=== PATIENT | female | born 1965 | race Caucasian/White ===

== ENCOUNTER 2020-10-03 13:01 | Outpatient (CLI) | payer MEDICARE, MEDICAID, SELFPAY | END 2020-10-03 13:02 | disposition home or self-care (01) | LOC: ANHBWCAUD 13:02 | PROVIDERS: PCP Internal Medicine; Visit Provider Internal Medicine | DX: H90.3 Sensorineural hearing loss, bilateral (principal) | CPT/HCPCS: 92557; 92567 ==

== ENCOUNTER 2020-10-21 13:53 | Outpatient (RCR) | payer MEDICAID, SELFPAY | END 2021-01-19 23:59 | disposition home or self-care (01) | LOC: ANHBWCAUD 13:53 | PROVIDERS: PCP Internal Medicine; Visit Provider Internal Medicine | DX: Z46.1 Encounter for fitting and adjustment of hearing aid (principal) | CPT/HCPCS: V5160; V5261 ==

== ENCOUNTER 2023-04-19 13:58 | Emergency (ER) | payer MEDICARE, MEDICAID, SELFPAY ==
[2023-04-19 14:27] VITALS: BP 117/76; PULSE 84; RESP 16; TEMP 37.1; O2SAT 99
--- NOTE | 2023-04-19 15:38 | ED.GENADULT ---
HPI - General Adult General Chief complaint: Upper Respiratory Infection Stated complaint: exposed RSV/feeling bad Source: patient Mode of arrival: ambulatory Limitations: no limitations History of Present Illness HPI narrative: PATIENT PRESENTS FOR EVALUATION OF RESPIRATORY SYMPTOMS FOR LAST 2 DAYS. SYMPTOMS INCLUDE NONPRODUCTIVE COUGH, OCCASIONAL WHEEZING, BODY ACHES, DIAPHORESIS, FEVER, CHILLS, NAUSEA, VOMITING, DIARRHEA, SHORTNESS OF BREATH. HER GRANDSON IS HERE BEING EVALUATED FOR SIMILAR SYMPTOMS. SHE HAS TAKEN DAYQUIL AND NYQUIL TO ASSIST WITH HER SYMPTOMS. SHE SMOKES APPROXIMATELY QUARTER PACK PER DAY AND ALSO SMOKES MARIJUANA DAILY. HER FEMALE GRANDCHILD HAS RSV. Related Data Home Medications Medication Instructions Recorded Confirmed calcium carbonate 600 mg-vitamin tablet PO 04/19/23 D3 10 mcg (400 unit) tablet omeprazole 20 mg capsule,delayed mg 04/19/23 release trazodone 50 mg tablet mg 04/19/23 Allergies Allergy/AdvReac Type Severity Reaction Status Date / Time No Known Allergies Allergy Unverified 07/24/15 11:11 Review of Systems Review of Systems: CONSTITUTIONAL: Reports fever, chills, diaphoresis. EYES: Denies visual changes, redness, or discharge. ENT: Reports sinus congestion postnasal drainage. CARDIOVASCULAR: Denies chest pain, palpitations, or edema. RESPIRATORY: Reports cough and shortness of breath. GASTROINTESTINAL: Reports nausea, vomiting, diarrhea GENITOURINARY: Denies dysuria or hematuria. SKIN: Denies rash or itching. MUSCULOSKELETAL: Reports generalized body aches. NEUROLOGIC: Denies headache, numbness, dizziness, or weakness. PSYCHIATRIC: Denies anxiety or depression. [facility] Past Medical History Medical History Arthritis COPD (chronic obstructive pulmonary disease) Surgical History Surgical History No pertinent past surgical history Family History Family History Mother Family history non-contributory Social History Social History Smoking packs per day: 0.25 Smoking cigarettes per day: 5.0 Smoking status: Current every day smoker Alcohol intake: current Alcohol use details: occasional Substance use: current Substance use type: marijuana Living arrangements: with family Gender identity (if verbalized by the patient): Female Spiritual care concerns: No Exam Narrative: GENERAL: Well-appearing, well-nourished, and in no acute distress. HEAD: Normocephalic, atraumatic. EYES: PERRLA and EOMI. ENT: Nares clear, no rhinorrhea or epistaxis. Mucous membranes moist. Oropharynx without tonsillar hypertrophy exudate or other lesions. Bilateral TMs pearly diaz nonbulging NECK: Supple. No adenopathy or masses. No carotid bruits or JVD CHEST: Clear to auscultation. No respiratory distress. No wheezes rales or rhonchi HEART: Regular rate and rhythm. No murmur heard. Normal peripheral pulses. ABDOMEN: Soft, nontender, nondistended, normal active bowel sounds. EXTREMITIES: Normal range of motion. No edema. SKIN: Warm, dry, no rash. NEURO: No focal deficits. Alert and oriented x3. PSYCH: Normal mood and affect. Course Course Emergency Course: This is a 57-year-old female who presented for evaluation of sick symptoms. Influenza and COVID here negative. I do not appreciate any based on exam and she declined prescription for prednisone in the event that she had recurrence of her wheezing. Advise she should refrain from smoking. She may have RSV due to the recent exposure and negative testing for COVID and influenza. She should follow up with primary provider, increase hydration and take [id number] medications as needed for her symptoms. Go to the emergency department for worsening symptoms.
== END 2023-04-19 15:45 | disposition home or self-care (01) ==
PROVIDERS: Emergency Provider Nurse Practitioner
DX: B34.9 Viral infection, unspecified (principal); J44.9 Chronic obstructive pulmonary disease, unspecified; F17.210 Nicotine dependence, cigarettes, uncomplicated; Z79.899 Other long term (current) drug therapy; Z20.822 Contact with and (suspected) exposure to COVID-19
CPT/HCPCS: 87426; 87804; 99213; G0463